=== PATIENT | female | born 1985 | race Caucasian/White ===

== ENCOUNTER 2018-04-28 20:53 | Inpatient (IN) ==
[2018-04-28] MEDS ORDERED: ACETAMINOPHEN 325 MG TABLET PO PRN (21:04)
[2018-04-28] MEDS ORDERED: MEPERIDINE 50 MG/1 ML VIAL IV PRN (21:04)
[2018-04-28] MEDS ORDERED: BUTORPHANOL 2 MG/ML VIAL IV PRN (21:04)
[2018-04-28] MEDS ORDERED: ONDANSETRON 4 MG/2 ML VIAL IV PRN (21:04)
[2018-04-28 21:23] LABS: Basophils % 0.2 % (0.0-0.8); Eosinophils # 0.1 10*3/uL (0.0-0.87); Eosinophils % 0.5 % (0.00-10.9); Hematocrit 36.7 VOL% (35.7-47.0); Immature Granulocytes Absolute 0.12 #; Lymphocytes # 2.7 10*3/uL (1.4-4.0); Lymphocytes % 21.3 % (21.3-54.2); Mean Corpuscular HGB Conc 32.7 GM/DL (32-36); Mean Corpuscular Hemoglobin 30 PG (27-34); Mean Corpuscular Volume 92.9 FL (87-102); Mean Platelet Volume 9.5 FL (9.6-12.0); Monocytes # 0.7 10*3/uL (0.11-0.8); Monocytes % 5.5 % (1.7-12.7); Neutrophils % 71.5 % (38.7-73.9); Platelet Count 306 T/CUMM (130-400); Red Blood Count 3.95 MC/CUMM (3.8-5.5); Red Cell Distribution Width 13.4 % (9.3-17.3); White Blood Count 12.6 T/CUMM (4-12)
[2018-04-28] MEDS: LACTATED RINGERS 1,000 ML IV SCH (23:44)
[2018-04-29] MEDS: LACTATED RINGERS 1,000 ML IV SCH ×2 (07:59→15:12)
[2018-04-29] MEDS ORDERED: OXYTOCIN/LR 20 UNIT/1,000 ML BAG IV ONE ×2 (12:32→18:55)
[2018-04-29] MEDS ORDERED: OXYTOCIN/LR 20 UNIT/1,000 ML BAG IV SCH (13:00)
[2018-04-29] MEDS ORDERED: diphenhydrAMINE 50 MG/1 ML VIAL IV PRN (14:13)
[2018-04-29] MEDS ORDERED: CITRIC ACID/SODIUM CITRATE 30 ML UDCUP PO ONE (14:13)
[2018-04-29] MEDS ORDERED: LACTATED RINGERS 250 ML IV PRN (14:13)
[2018-04-29] MEDS ORDERED: NALOXONE 0.4 MG/ML VIAL IV PRN (14:13)
[2018-04-29] MEDS ORDERED: FAMOTIDINE 20 MG/2 ML VIAL IV ONE (14:13)
[2018-04-29] MEDS ORDERED: ePHEDrine 50 MG/ML AMP IV PRN (14:13)
[2018-04-29] MEDS ORDERED: PROMETHAZINE 25 MG/1 ML VIAL IM ONE (14:13)
[2018-04-29] MEDS ORDERED: hydrOXYzine HCL 25 MG/1 ML VIAL IM PRN (14:13)
[2018-04-29] MEDS ORDERED: ONDANSETRON 4 MG/2 ML VIAL IV ONE (14:13)
[2018-04-29] MEDS ORDERED: fentaNYL 2 MCG/ROPIV 0.2% EPID 100 ML EPIDURAL SCH (14:30)
[2018-04-29 16:03] LABS: Apearance,Urine CLEAR (Clear); Bilirubin,Urine Negative (Negative); Blood, Urine Negative (Negative); Glucose,Urine (UA) Negative (Negative); Ketones,Urine Negative (Negative); Mucus,Urine Occasional /LPF (Occasional); Nitrite,Urine Negative (Negative); Protein,Urine Negative; Urine Color Yellow (Yellow); Urine Specific Gravity 1.009 (1.001-1.035); Urine Urobilinogen < 2.0 EU/DL (0.2-1.0); WBC,Urine <1 /HPF (0-6)
[2018-04-29] MEDS ORDERED: miSOPROStol 200 MCG TABLET VAG ONE (16:30)
[2018-04-29] MEDS ORDERED: miSOPROStol 200 MCG TABLET ONE ×2 (17:51→18:43)
[2018-04-29] MEDS ORDERED: CARBOPROST TROMETHAMINE 250 MCG/ML AMP IM ONE ×2 (17:51→19:02)
[2018-04-29] MEDS ORDERED: METHYLERGONOVINE 0.2 MG/1 ML AMP ONE ×2 (17:51→18:43)
[2018-04-29] MEDS ORDERED: ACETAMINOPHEN 325 MG TABLET PO PRN (18:55)
[2018-04-29] MEDS ORDERED: oxyCODONE/ACETAMINOPHEN 5-325 MG TABLET PO PRN (18:55)
[2018-04-29] MEDS ORDERED: DIPH/TET/ACEL PERT BOOSTER VACCINE 0.5 ML VIAL IM ONE (18:55)
[2018-04-29] MEDS ORDERED: MEASLES/MUMPS/RUBELLA VACCINE 0.5 ML VIAL SUBCUT ONE (18:55)
[2018-04-29] MEDS ORDERED: RHO(D) IMMUNE GLOBULIN 300 MCG SYRINGE IM ONE (18:55)
[2018-04-29] MEDS ORDERED: HYDROCORTISONE 2.5% RECTAL CREAM 30 GM TUBE TOP PRN (18:55)
[2018-04-29] MEDS ORDERED: WITCH HAZEL PADS 100/JAR TOP PRN (18:55)
[2018-04-29] MEDS ORDERED: BISACODYL 10 MG SUPP RECTAL PRN (18:55)
[2018-04-29] MEDS ORDERED: ONDANSETRON 4 MG/2 ML VIAL IV PRN (18:55)
[2018-04-29] MEDS ORDERED: LANOLIN 50% CREAM 0.3 OZ TUBE TOP PRN (18:55)
[2018-04-29] MEDS ORDERED: BENZOCAINE 20%/MENTHOL 0.5% SPRAY 56 GM CAN TOP PRN (18:55)
[2018-04-29] MEDS ORDERED: HYDROmorphone 2 MG/1 ML VIAL IV ONE (19:28)
[2018-04-29] MEDS ORDERED: HYDROmorphone 2 MG/1 ML VIAL IV SCH (19:30)
[2018-04-29] MEDS: DOCUSATE SODIUM 100 MG CAPSULE PO SCH (22:16)
[2018-04-29] MEDS: IBUPROFEN 800 MG TABLET PO PRN (23:15)
[2018-04-30] MEDS: oxyCODONE/ACETAMINOPHEN 5-325 MG TABLET PO PRN ×2 (02:22→21:54)
[2018-04-30 05:45] LABS: Basophils % 0.2 % (0.0-0.8); Eosinophils # 0.1 10*3/uL (0.0-0.87); Eosinophils % 0.6 % (0.00-10.9); Hematocrit 24.1 VOL% (35.7-47.0); Immature Granulocytes % 0.8 %; Immature Granulocytes Absolute 0.14 #; Lymphocytes # 2.6 10*3/uL (1.4-4.0); Lymphocytes % 14.7 % (21.3-54.2); Mean Corpuscular HGB Conc 33.2 GM/DL (32-36); Mean Corpuscular Hemoglobin 31 PG (27-34); Mean Platelet Volume 9.8 FL (9.6-12.0); Monocytes # 1.1 10*3/uL (0.11-0.8); Monocytes % 6.3 % (1.7-12.7); Neutrophils # 13.8 10*3/uL (1.4-7.4); Neutrophils % 77.4 % (38.7-73.9); Red Cell Distribution Width 13.7 % (9.3-17.3)
[2018-04-30 05:51] LABS: White Blood Count 17.8 T/CUMM (4-12)
[2018-04-30 05:52] LABS: Platelet Count 230 T/CUMM (130-400); Red Blood Count 2.62 MC/CUMM (3.8-5.5)
[2018-04-30] MEDS: IBUPROFEN 800 MG TABLET PO PRN ×2 (08:04→14:39)
[2018-04-30] MEDS: DOCUSATE SODIUM 100 MG CAPSULE PO SCH ×2 (09:44→21:57)
[2018-04-30] MEDS: FERROUS SULFATE 325 MG TABLET PO SCH ×2 (09:45→21:57)
[2018-05-01] MEDS: IBUPROFEN 800 MG TABLET PO PRN (06:14)
[2018-05-01 07:20] VITALS: BP 105/62
[2018-05-01] MEDS: FERROUS SULFATE 325 MG TABLET PO SCH (09:24)
[2018-05-01] MEDS: DOCUSATE SODIUM 100 MG CAPSULE PO SCH (09:24)
== END 2018-05-01 13:45 | disposition home or self-care (01) | DRG 807 ==
LOC: N.LDOUT 20:53 → N.LD 20:55 → N.OB 04-29 22:58
PROVIDERS: ADMIT Specialist; ATTEND Specialist